=== PATIENT | female | born 1945 | race Caucasian/White ===

== ENCOUNTER 2022-03-02 20:08 | Emergency (ER) | payer MEDICAID ==
[~2022-03-02] VITALS: Ht 134.6 cm; Wt 50.0 kg
[2022-03-02 20:18] VITALS: BP 135/74
--- NOTE | 2022-03-02 20:23 | NUR ---
PT TO BED 9
[2022-03-02] MEDS ORDERED: ONDANSETRON 4 MG ODT PO ONE (21:05)
[2022-03-02] MEDS ORDERED: FAMOTIDINE 20 MG TAB PO ONE (21:05)
[2022-03-02] MEDS ORDERED: ALUMINUM HYD/MAG/SIMETHICONE 30 ML UDC PO ONE (21:05)
[2022-03-02 21:13] LABS: APPEARANCE,URINE CLEAR (CLEAR); BILIRUBIN,URINE NEGATIVE (NEGATIVE); BLOOD, URINE 1+ (NEGATIVE); COLOR,URINE YELLOW (YELLOW); LEUKOCYTE ESTERASE ,URINE 1+ (NEGATIVE); NITRITE, URINE NEGATIVE (NEGATIVE); UGLUCOSE NEGATIVE (NEGATIVE)
--- NOTE | 2022-03-02 21:21 | NUR ---
PT C/O ABDOMINAL PAIN N/V X2 DAYS. IV INSERTED TO LEFT FA #20GUAGE. BLOOD DRAWN AND GIVEN TO LAB. PT AMBULATES TO BATHROOM TO GIVEN URINE SAMPLE.
[2022-03-02 21:28] LABS: BASOPHILS # (AUTO) 0.1 K/uL (0.00-0.22); BASOPHILS % (AUTO) 1.5 % (0.0-2.0); EOSINOPHILS # (AUTO) 0.2 K/uL (0-0.4); EOSINOPHILS % (AUTO) 2.8 % (0.0-4.0); HEMATOCRIT 38.5 % (36-48); LYMPHOCYTES # (AUTO) 2.2 K/uL (2.5-16.5); LYMPHOCYTES % (AUTO) 39.7 % (20.5-51.1); MEAN CORPUSCULAR HEMOGLOBIN 30 pg (27-31); MEAN CORPUSCULAR HGB CONC 34 g/dL (33-37); MEAN CORPUSCULAR VOLUME 87.1 fL (80-94); MONOCYTES # (AUTO) 0.7 K/uL (0.8-1.0); NEUTROPHILS # (AUTO) 2.4 K/uL (1.8-7.7); PLATELET COUNT (AUTO) 225 K/uL (140-450); RED BLOOD CELL COUNT(AUTO) 4.42 MIL/uL (4.20-5.40); RED CELL DISTRIBUTION WIDTH 12.9 % (11.6-13.7); WHITE BLOOD COUNT (AUTO) 5.5 K/uL (4.8-10.8)
[2022-03-02 21:43] LABS: ALBUMIN 3.2 g/dL (3.4-5.0); ANION GAP 12.4 (8-16); ASPARTATE AMINOTRANSFERASE 38 U/L (15-37); CARBON DIOXIDE 24.2 mmol/L (21-32); CHLORIDE 106 mmol/L (98-107); CREATININE 0.9 mg/dL (0.6-1.3); GLUCOSE 79 mg/dL (74-106); POTASSIUM 4.6 mmol/L (3.5-5.1); SODIUM SERUM 138 mmol/L (136-145); TOTAL BILIRUBIN 0.3 mg/dL (0.0-1.0); UREA NITROGEN, BLOOD 15 mg/dL (7-18)
[2022-03-02 21:52] LABS: TRICHOMONAS,URINE None Seen /HPF (None Seen); YEAST,URINE None Seen /HPF (None Seen)
--- NOTE | 2022-03-02 23:37 | NUR ---
ULTRASOUND AT BEDSIDE
[2022-03-03] MEDS ORDERED: AMLO10TA88 PO (01:50)
[2022-03-03] MEDS ORDERED: TRAZ-466 PO (01:50)
--- NOTE | 2022-03-03 02:50 | NUR ---
ENDORSED RECEIVED REPORT ON PT FROM MADELYN JONES
[2022-03-03] MEDS ORDERED: ENALAPRILAT 2.5 MG/2 ML VIAL IVP ONE (03:45)
[2022-03-03] MEDS ORDERED: MORPHINE SULFATE 4 MG/ML SYR IVP ONE (03:45)
--- NOTE | 2022-03-03 04:30 | NUR ---
Pt medicated for pain and increased BP. Meds were effective, BP and pain level improved.
[2022-03-03] MEDS ORDERED: FAMO-90 PO (06:41)
[2022-03-03 06:50] VITALS: BP 132/65
--- NOTE | 2022-03-03 06:50 | NUR ---
Patient discharged with v/s stable. Written and verbal after care instructions given and explained. Patient verbalized understanding. Ambulatory with steady gait. Rx Pepcid given. All questions addressed prior to discharge. Advised to follow up with PMD.
== END 2022-03-03 06:50 | disposition home or self-care (01) ==
LOC: MED 20:08
DX: N28.89 Other specified disorders of kidney and ureter (principal); Z20.822 Contact with and (suspected) exposure to COVID-19; K21.9 Gastro-esophageal reflux disease without esophagitis; I10 Essential (primary) hypertension; Z79.899 Other long term (current) drug therapy; Z90.710 Acquired absence of both cervix and uterus
CPT/HCPCS: 36415; 74176; 76705; 80053; 81001; 83690; 85025; 87086; 87426; 96374; 96375; 99285; J2270; J3490; Q0092; Q0162